=== PATIENT | male | born 1965 | race Caucasian/White ===

== ENCOUNTER 2016-08-28 11:59 | Emergency (ER) | payer OTHER ==
[~2016-08-28] VITALS: Ht 177.8 cm; Wt 99.0 kg
[2016-08-28] MEDS ORDERED: OPANA ER40 MG PO (12:17)
[2016-08-28] MEDS ORDERED: SOMA350 MG PO (12:17)
[2016-08-28] MEDS ORDERED: OXYCODONE HCL20 M1 PO (12:17)
[2016-08-28] MEDS ORDERED: GRALISE300 MG PO (12:18)
[2016-08-28] MEDS ORDERED: NORCO 5/3251 TABLET PO (13:34)
[2016-08-28] MEDS ORDERED: KEFLEX500 MG PO (13:34)
[2016-08-28 13:52] VITALS: BP 127/88
== END 2016-08-28 13:53 | disposition home or self-care (01) ==
LOC: EME 11:59
PROC: 2Y41X5Z Packing of Nasal Region using Packing Material (ICD-10-PCS; principal; 2016-08-28)
DX: R04.0 Epistaxis (principal); F17.200 Nicotine dependence, unspecified, uncomplicated
CPT/HCPCS: 99281; 99284

== ENCOUNTER 2016-08-30 10:28 | Emergency (ER) | payer OTHER ==
[~2016-08-30] VITALS: Ht 175.3 cm; Wt 111.1 kg
[~2016-08-30 10:28] MED LIST: GRALISE300 MG PO; KEFLEX500 MG PO; NORCO 5/3251 TABLET PO; OPANA ER40 MG PO; OXYCODONE HCL20 M1 PO; SOMA350 MG PO
[2016-08-30 10:35] VITALS: BP 133/85
== END 2016-08-30 12:00 | disposition home or self-care (01) ==
LOC: EXP 10:28 → EME 10:28 → EXP 12:00
DX: Z51.89 Encounter for other specified aftercare (principal); R04.0 Epistaxis
CPT/HCPCS: 99281; 99283